=== PATIENT | male | born 1945 ===

== ENCOUNTER → 2017-09-18 | Outpatient (CLI) | payer MEDICARE, OTHER ==
[~2017-09-18] MED LIST: ACET-711 PO; DIAZ5TAB4 PO; FELO5TAB PO; LEVO500T47 PO; METO25TA35 PO
== END | disposition home or self-care (01) ==
LOC: STAR 15:38
PROVIDERS: ATTEND Urology
DX: Z01.818 Encounter for other preprocedural examination (principal); I45.10 Unspecified right bundle-branch block
CPT/HCPCS: 93005

== ENCOUNTER 2017-09-25 13:34 | Day surgery (SDC) | payer MEDICARE, OTHER ==
[2017-09-18 15:59] VITALS: BP_SYST 128
[~2017-09-25] VITALS: Ht 170.2 cm; Wt 76.3 kg
[2017-09-25] MEDS ORDERED: LACTATED RINGERS 1,000 ML IV SCH (14:03)
[2017-09-25] MEDS ORDERED: FENTANYL PF 250 MCG/5ML ONE (15:29)
[2017-09-25] MEDS ORDERED: PHENYLEPHRINE 10 MG/ML ONE (15:32)
[2017-09-25] MEDS ORDERED: ROCURONIUM 10 MG/ML,10ML ONE (15:32)
[2017-09-25] MEDS ORDERED: CIPROFLOXACIN/PMX 400MG/200ML 200 ML ONE (16:04)
[2017-09-25] MEDS ORDERED: GLYCOPYRROLATE 0.2MG/1ML, 5ML ONE (16:39)
[2017-09-25] MEDS ORDERED: DEXAMETHASONE 4 MG/ML, 1ML ONE (16:39)
[2017-09-25] MEDS ORDERED: NEOSTIGMINE 1 MG/ML, 10ML ONE ×2 (16:39)
[2017-09-25] MEDS ORDERED: GLYCOPYRROLATE 0.4 MG/2 ML, 2ML ONE (16:39)
[2017-09-25] MEDS ORDERED: ONDANSETRON 2MG/ML, 2ML ONE (16:39)
[2017-09-25] MEDS ORDERED: PROPOFOL 10 MG/ML, 20ML ONE (16:39)
[2017-09-25] MEDS ORDERED: CEFAZOLIN 1,000 MG ONE (16:39)
[2017-09-25] MEDS ORDERED: SUCCINYLCHOLINE 20 MG/ML, 10ML ONE (16:39)
[2017-09-25] MEDS ORDERED: OMNIPAQUE 350 MG/ML, 50 ML BOTTLE INJ ONE (16:50)
[2017-09-25] MEDS ORDERED: MORPHINE SULFATE 4 MG/ML, 1ML IVPush PRN (17:00)
[2017-09-25] MEDS ORDERED: FENTANYL PF 100 MCG/2ML IV PRN (17:00)
[2017-09-25] MEDS ORDERED: HYDROcodone/APAP 7.5-325MG/15ML UDC PO PRN (17:00)
[2017-09-25] MEDS ORDERED: PROMETHAZINE 25 MG/ML, 1ML IV PRN (17:00)
[2017-09-25] MEDS ORDERED: ACETAMINOPHEN 325 MG TABLET PO PRN (17:00)
[2017-09-25] MEDS ORDERED: OXYcodone 5 MG/5 ML ORAL.SOL UDC PO PRN (17:00)
[2017-09-25] MEDS ORDERED: ONDANSETRON ODT 8 MG PO PRN (17:00)
[2017-09-25] MEDS ORDERED: OXYcodone 5 MG/5 ML ORAL.SOL UDC ONE (17:14)
[2017-09-25] MEDS ORDERED: ACETAMINOPHEN 650 MG/20.3 ML UDC ONE (17:14)
[2017-09-25 17:52] LABS: MICROSCOPIC NOT IND
[2017-09-25 18:20] LABS: CULTURE INDICATED? YES
== END 2017-09-25 21:10 | disposition home or self-care (01) ==
LOC: OR 13:34 → 4NOR 18:00 → OR 21:10
PROVIDERS: ATTEND Urology
DX: N20.0 Calculus of kidney (principal); I10 Essential (primary) hypertension; E78.5 Hyperlipidemia, unspecified; Z87.440 Personal history of urinary (tract) infections
CPT/HCPCS: 52353; 81003; 87086; C1758; C1769; J0690; J0744; J1100; J2370; J2405; J2704; J2710; J3010; J7120; Q9967; J3490; J0330

== ENCOUNTER → 2017-10-23 | Outpatient (CLI) | payer MEDICARE, OTHER | END | disposition home or self-care (01) | LOC: RAD 16:45 | PROVIDERS: ATTEND Urology | DX: N20.2 Calculus of kidney with calculus of ureter (principal); I10 Essential (primary) hypertension; E78.5 Hyperlipidemia, unspecified; Z90.49 Acquired absence of other specified parts of digestive tract | CPT/HCPCS: 74018 ==